=== PATIENT | male | born 1960 ===

== ENCOUNTER 2017-03-15 16:21 | Observation (INO) | payer OTHER ==
[2017-03-15] MEDS ORDERED: solu-MEDROL 125 MG IV ONE (16:24)
[2017-03-15] MEDS ORDERED: DUONEB 0.5-3 MG/3 ml Neb IH ONE ×2 (16:24→16:28)
[2017-03-15] MEDS ORDERED: Lactated Ringers 1,000 ML IV ONE ×2 (16:25→16:30)
[2017-03-15] MEDS ORDERED: solu-MEDROL 125 MG ONE (16:29)
[2017-03-15 16:38] LABS: BASOPHIL % 0.4 % (0.0-0.4); Basophil (Absolute #) 0.02 (0-0.4); Eosinophil % 0.5 % (0.00-5.0); Eosinophil (Absolute #) 0.03 (0-0.5); Granulocyte Absolute (ANC) 3.97 (1.4-6.9); Granulocytes % 71.4 % (36.0-66.0); Hematocrit 44.6 % (42-50); Hemoglobin 14.4 gm/dl (12.5-18.0); Mean Cell Volume 89.2 fl (78-100); Mean Corpuscular Hemoglobin 28.8 pg (26-32); Mean Corpuscular Hgb Concent. 32.3 g/dl (32-36); Mean Platelet Volume 10.1 fl (6-9.5); Monocyte (Absolute #) 0.54 (0.0-1.3); Monocytes % 9.7 % (0.0-12.0); Platelet Count 207 K/mm3 (150-450); Red Cell Distribution Width 12.5 % (11.5-14.0); White Blood Count 5.6 K/mm3 (4.0-10.5)
[2017-03-15 16:45] LABS: VBG BASE EXCESS 2.4 (-2.0-2.0); VBG CARBOXYHEMOGLOBIN 2.6 % T HGB (0.0-6.9); VBG HCO3- 26.4 meq/L (22-28); VBG HEMOGLOBIN 15.1; VBG POTASSIUM 3.6 (3.5-5.1); VBG pH 7.45 (7.32-7.42)
--- NOTE | 2017-03-15 17:00 | XRAY ---
Indication: Cough. Asthma. Comparison: None Portable chest clear. Heart is not enlarged. Vascularity normal. Bony thorax intact with mild degenerative changes. Impression: Nonacute chest.
[2017-03-15] MEDS ORDERED: PROVENTIL 2.5 MG/3 ML NEB IH ONE ×4 (17:04→17:57)
--- NOTE | 2017-03-15 17:04 | ERPHSYRPT ---
- History of Present Illness Time Seen by Provider: 03/15/17 16:24 Source: patient, family Patient Subjective Stated Complaint: COUGH, SOB, FEVER FOR ONE WEEK. ALSO BODY ACHES AND HEADACHE Triage Nursing Assessment: TO ROOM PER W/C. SKIN W/D, COLOR NORMAL, RESP SLIGHTLY LABORED. AUDIBLE WHEEZES HEARD. Physician History: CC: asthma Hx: 56 y/o patient of [place] with hx of asthma. He has 4-5 day hx of wheezing, trouble breathing, URI symptoms, myalgias, headache, sore throats. Timing/Duration: worse Severity of Dyspnea-Max: moderate Severity of Dyspnea-Current: moderate Possible Cause: occasional episodes, allergen exposure Allergies/Adverse Reactions: No Known Drug Allergies Allergy (Unverified 03/15/17 16:42) Home Medications: Albuterol Sulfate [Proair Hfa] 8.5 gm IH UD 03/15/17 [History] Budesonide/Formoterol Fumarate [Symbicort 80-4.5 Mcg Inhaler] 6.9 gm IH BID 10/23 [History] Etodolac [Lodine] 300 mg PO DAILY 03/15/17 [History] Omeprazole 20 MG [Prilosec 20 mg] 20 mg PO DAILY 03/15/17 [History] Venlafaxine HCl ER 37.5 mg [Effexor ER 37.5 MG] 37.5 mg PO DAILY 03/15/17 [History] Hx Tetanus, Diphtheria Vaccination/Date Given: No Hx Influenza Vaccination/Date Given: No Hx Pneumococcal Vaccination/Date Given: No - Review of Systems Constitutional: Fatigue, Malaise, No Fever, No Chills Eyes: No Symptoms Ears, Nose, & Throat: No Symptoms Respiratory: Cough, Dyspnea, Wheezing Cardiac: No Chest Pain Abdominal/Gastrointestinal: Vomiting, Diarrhea, No Abdominal Pain, No Nausea Genitourinary Symptoms: No Dysuria Skin: No Rash Neurological: Headache All Other Systems: Reviewed and Negative - Past Medical History Pertinent Past Medical History: Yes Respiratory History: Asthma Musculoskeletal History: Degenerative Disk Disease GI Medical History: Hemorrhoids, Polyps Psycho-Social History: Anxiety, Depression Other Medical History: PTSD, - Past Surgical History Past Surgical History: Yes Gastrointestinal: Hemorrhoidectomy Other Surgical History: POLYPS REMOVED - Social History Smoking Status: Former smoker Exposure to second hand smoke: No Drug Use: none Patient Lives Alone: No - Nursing Vital Signs Nursing Vital Signs: Initial Vital Signs Temperature 98.9 F 03/15/17 16:24 Pulse Rate 89 03/15/17 16:24 Respiratory Rate 20 03/15/17 16:24 Blood Pressure 118/68 03/15/17 16:24 O2 Sat by Pulse Oximetry 91 L 03/15/17 16:24 Pain Scale Pain Intensity 0 - Physical Exam General Appearance: alert, other (breathless on arrival) Eye Exam: PERRL/EOMI Neck Exam: normal inspection, non-tender, supple Respiratory Exam: respiratory distress (mild), wheezing Cardiovascular/Chest Exam: normal heart sounds, regular rate/rhythm, No murmur Abdominal/Gastrointestinal Exam: soft, No tenderness, No distention, No mass Extremity Exam: non-tender, no calf tenderness Neurologic Exam: alert, oriented x 3, cooperative, sensation nml, No motor deficits Skin Exam: warm, dry, No rash SpO2 Interpretation: hypoxic, O2 applied SpO2: 91 Oxygen Delivery: Room Air - Course Nursing assessment & vital signs reviewed: Yes EKG Interpreted by Me: RATE (86), Sinus Rhythm, NORMAL AXIS, NORMAL INTERVALS ( QTc 414), NORMAL QRS, NORMAL ST-T, Other (Poor R wave progression) - Radiology Exams cxr X-ray Interpretation: Teleradiologist Report, Negative Ordered Tests: Active Orders 24 hr Category Date Time Status Supervising Appraiser STAT Care 03/15/17 16:25 Active EKG-ER Only STAT Care 03/15/17 16:24 Active IV Insertion STAT Care 03/15/17 16:24 Active Oxygen-ED Only NASAL CANNULA 2 lpm Care 03/15/17 17:04 Active Pulse Oximetry (ED) STAT Care 03/15/17 16:24 Active CHEST 1 VIEW (PORTABLE) Stat Exams 03/15/17 16:25 Completed CBC W DIFF Stat Lab 03/15/17 16:30 Completed CMP Stat Lab 03/15/17 16:30 Completed Lactic Acid Stat Lab 03/15/17 16:40 Completed MAGNESIUM Stat Lab 03/15/17 16:30 Completed UA W/RFX UR CULTURE Stat Lab 03/15/17 16:25 Ordered VENOUS BLOOD GAS Stat Lab 03/15/17 16:40 Completed Respiratory Nebulizer STAT RT 03/15/17 16:25 Completed Respiratory Nebulizer STAT RT 03/15/17 17:05 Completed Respiratory Nebulizer STAT RT 03/15/17 17:44 Completed Medication Summary Generic Name Dose Route Start Last Admin Trade Name Jackson PRN Reason Stop Dose Admin Magnesium Sulfate/Dextrose 100 mls @ 100 mls/hr 03/15/17 17:15 03/15/17 17:27 Magnesium 1 Gm / 100 Ml D5w IV 03/15/17 19:14 100 mls/hr Q1H CLAY Administration Discontinued Medications Generic Name Dose Route Start Last Admin Trade Name Jackson PRN Reason Stop Dose Admin Albuterol Sulfate 2.5 mg 03/15/17 17:04 03/15/17 17:08 Proventil 2.5 Mg/3 Ml Neb IH 03/15/17 17:05 2.5 mg STAT ONE Administration Albuterol Sulfate Confirm 03/15/17 17:05 Proventil 2.5 Mg/3 Ml Neb Administered 03/15/17 17:06 Dose 2.5 mg IH .STK-MED ONE Albuterol Sulfate 2.5 mg 03/15/17 17:44 03/15/17 18:02 Proventil 2.5 Mg/3 Ml Neb IH 03/15/17 17:45 2.5 mg STAT ONE Administration Albuterol Sulfate Confirm 03/15/17 17:57 Proventil 2.5 Mg/3 Ml Neb Administered 03/15/17 17:58 Dose 2.5 mg IH .STK-MED ONE Albuterol/Ipratropium 3 ml 03/15/17 16:24 03/15/17 16:31 Duoneb 0.5-3 Mg/3 Ml Neb IH 03/15/17 16:25 3 ml STAT ONE Administration Albuterol/Ipratropium Confirm 03/15/17 16:28 Duoneb 0.5-3 Mg/3 Ml Neb Administered 03/15/17 16:29 Dose 3 ml IH .STK-MED ONE Lactated Ringer's 1,000 mls @ 999 mls/hr 03/15/17 16:25 03/15/17 16:33 Lactated Ringers IV 03/15/17 17:25 999 mls/hr .Q1H1M ONE Administration Lactated Ringer's Confirm 03/15/17 16:30 Lactated Ringers Administered 03/15/17 16:31 Dose 1,000 mls @ ud IV .STK-MED ONE Magnesium Sulfate/Dextrose Confirm 03/15/17 17:24 Magnesium 1 Gm / 100 Ml D5w Administered 03/15/17 17:25 Dose 100 mls @ ud IV .STK-MED ONE Methylprednisolone Sodium Succinate 125 mg 03/15/17 16:24 03/15/17 16:34 Solu-Medrol 125 Mg IV 03/15/17 16:25 125 mg STAT ONE Administration Methylprednisolone Sodium Succinate Confirm 03/15/17 16:29 Solu-Medrol 125 Mg Administered 03/15/17 16:30 Dose 125 mg .ROUTE .STK-MED ONE Oseltamivir Phosphate 75 mg 03/15/17 18:07 03/15/17 18:15 Tamiflu 75mg Capsule PO 03/15/17 18:08 75 mg STAT ONE Administration Oseltamivir Phosphate Confirm 03/15/17 18:14 Tamiflu 75mg Capsule Administered 03/15/17 18:15 Dose 75 mg PO .STK-MED ONE Lab/Rad Data: Laboratory Result Diagrams 03/15/17 16:30 03/15/17 16:30 Laboratory Results 03/15/17 03/15/17 03/15/17 Range/Units 16:40 16:40 16:30 WBC (4.0-10.5) K/mm3 RBC (4.1-5.6) M/mm3 Hgb (12.5-18.0) gm/dl Hct (42-50) % MCV (78-100) fl MCH (26-32) pg MCHC (32-36) g/dl RDW (11.5-14.0) % Plt Count (150-450) K/mm3 MPV (6-9.5) fl Gran % (36.0-66.0) % Lymphocytes % (24.0-44.0) % Monocytes % (0.0-12.0) % Eosinophils % (0.00-5.0) % Basophils % (0.0-0.4) % Basophils # (0-0.4) VBG pH 7.45 H (7.32-7.42) VBG pCO2 at Pat Temp 38 L (42-55) mm/Hg VBG pO2 at Pat Temp 44 H (25-40) mm/Hg VBG HCO3 26.4 (22-28) meq/L VBG O2 Sat (Hunter) 86.0 L (95-100) VBG Base Excess 2.4 H (-2.0-2.0) VBG Hemoglobin 15.1 VBG Carboxyhemoglobin 2.6 (0.0-6.9) % T HGB POC Potassium 3.6 (3.5-5.1) Sodium (136-145) mEq/L Potassium (3.5-5.1) mEq/L Chloride (98-107) mEq/L Carbon Dioxide (21-32) mEq/L Anion Gap (5-15) MEQ/L BUN (9-20) mg/dL Creatinine (0.55-1.30) mg/dl Estimated GFR ML/MIN Glucose (70-110) MG/DL Lactic Acid 1.7 (0.4-2.0) Calcium (8.5-10.1) mg/dL Magnesium (1.8-2.4) mg/dL Total Bilirubin (0.2-1.0) mg/dL AST (15-37) U/L ALT (12-78) U/L Alkaline Phosphatase (46-116) U/L Serum Total Protein (6.4-8.2) gm/dL Albumin (3.4-5.0) g/dL Influenza Type A Ag NEGATIVE (NEGATIVE) Influenza Type B Ag POSITIVE (NEGATIVE) RSV (PCR) NEGATIVE (Negative) 03/15/17 03/15/17 Range/Units 16:30 16:30 WBC 5.6 (4.0-10.5) K/mm3 RBC 5.00 (4.1-5.6) M/mm3 Hgb 14.4 (12.5-18.0) gm/dl Hct 44.6 (42-50) % MCV 89.2 (78-100) fl MCH 28.8 (26-32) pg MCHC 32.3 (32-36) g/dl RDW 12.5 (11.5-14.0) % Plt Count 207 (150-450) K/mm3 MPV 10.1 H (6-9.5) fl Gran % 71.4 H (36.0-66.0) % Lymphocytes % 18.0 L (24.0-44.0) % Monocytes % 9.7 (0.0-12.0) % Eosinophils % 0.5 (0.00-5.0) % Basophils % 0.4 (0.0-0.4) % Basophils # 0.02 (0-0.4) VBG pH (7.32-7.42) VBG pCO2 at Pat Temp (42-55) mm/Hg VBG pO2 at Pat Temp (25-40) mm/Hg VBG HCO3 (22-28) meq/L VBG O2 Sat (Hunter) (95-100) VBG Base Excess (-2.0-2.0) VBG Hemoglobin VBG Carboxyhemoglobin (0.0-6.9) % T HGB POC Potassium (3.5-5.1) Sodium 137 (136-145) mEq/L Potassium 3.5 (3.5-5.1) mEq/L Chloride 101 (98-107) mEq/L Carbon Dioxide 24.9 (21-32) mEq/L Anion Gap 14.4 (5-15) MEQ/L BUN 15 (9-20) mg/dL Creatinine 1.22 (0.55-1.30) mg/dl Estimated GFR > 60 ML/MIN Glucose 121 H (70-110) MG/DL Lactic Acid (0.4-2.0) Calcium 9.2 (8.5-10.1) mg/dL Magnesium 2.1 (1.8-2.4) mg/dL Total Bilirubin 0.60 (0.2-1.0) mg/dL AST 47 H (15-37) U/L ALT 34 (12-78) U/L Alkaline Phosphatase 110 (46-116) U/L Serum Total Protein 7.5 (6.4-8.2) gm/dL Albumin 3.5 (3.4-5.0) g/dL Influenza Type A Ag (NEGATIVE) Influenza Type B Ag (NEGATIVE) RSV (PCR) (Negative) - Progress Progress Note: 03/15/17 18:31 He has wheezing but improved with 3 nebs, steroids, mag. RA saturation is 89-91% . He is improved but still hypoxic. Flu B positive. Tamiflu given. Called [facility] who advised no beds there and admit here. Spoke to Dr Elroy Mora and will place in obs for o2, RT, and tamiflu. Pt and family aware and agree. Discussed with : Laura Will see patient in: hospital (observation) Counseled pt/family regarding: lab results, diagnosis, need for follow-up, rad results - Departure Time of Disposition: 18:32 Departure Disposition: Observation (Dr Elroy Mora (oc)) Clinical Impression: Status asthmaticus, Influenza B, Hypoxemia Condition: Fair Critical Care Time: Yes Critical Care Time(excluding separately billable procedures): 30-74 minutes Referrals: PATRIA SCHULZ MD [Primary Care Provider] -
[2017-03-15] MEDS ORDERED: Magnesium 1 Gm / 100 Ml D5W*** 100 ML IV ONE ×2 (17:24→18:30)
[2017-03-15] MEDS: Magnesium 1 Gm / 100 Ml D5W*** 100 ML IV SCH ×2 (17:27→18:31)
[2017-03-15 17:32] LABS: ALBUMIN 3.5 g/dL (3.4-5.0); ALKALINE PHOSPHATASE 110 U/L (46-116); ANION GAP 14.4 MEQ/L (5-15); BLOOD UREA NITROGEN 15 mg/dL (9-20); CHLORIDE 101 mEq/L (98-107); Calcium 9.2 mg/dL (8.5-10.1); Carbon Dioxide 24.9 mEq/L (21-32); Creatinine 1 1.22 mg/dl (0.55-1.30); EST GLOMERULAR FILTRATION RATE > 60 ML/MIN; Glucose 121 MG/DL (70-110); MAGNESIUM 2.1 mg/dL (1.8-2.4); Potassium 3.5 mEq/L (3.5-5.1); SGOT/AST 47 U/L (15-37); SGPT/ALT 34 U/L (12-78); SODIUM 137 mEq/L (136-145); Total Protein 7.5 gm/dL (6.4-8.2)
[2017-03-15 17:51] LABS: INFLUENZA A NEGATIVE (NEGATIVE); RESPIRATORY SYNCTIAL VIRUS NEGATIVE (Negative)
[2017-03-15 17:52] LABS: INFLUENZA B POSITIVE (NEGATIVE)
[2017-03-15] MEDS ORDERED: Tamiflu 75MG Capsule PO ONE ×2 (18:07→18:14)
[2017-03-15 18:34] LABS: Appearance CLEAR (CLEAR); Bilirubin NEGATIVE (NEGATIVE); Blood TRACE NON-HEM Ery/ul (0-5); Glucose NEGATIVE (NEGATIVE); Ketones NEGATIVE (NEGATIVE); Leukocyte Esterase NEGATIVE (NEGATIVE); Nitrite NEGATIVE (NEGATIVE); Protein,Urine Dip NEGATIVE (Negative); Specific Gravity 1.005 (1.005-1.025); Urobilinogen NORMAL mg/dL (0-1)
[2017-03-15 18:35] LABS: Bacteria RARE /HPF (NEGATIVE)
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
[2017-03-15] MEDS ORDERED: D5w/0.45NS W/ 40MEQ KCl 1000 Ml 1,000 ML IV SCH (21:10)
[2017-03-15] MEDS ORDERED: TYLENOL 325 MG PO PRN (21:10)
[2017-03-15] MEDS ORDERED: PROVENTIL 2.5 MG/3 ML NEB IH PRN (21:10)
[2017-03-15] MEDS: DUONEB 0.5-3 MG/3 ml Neb IH SCH (21:51)
[2017-03-15] MEDS: Tamiflu 75MG Capsule PO SCH (22:55)
[2017-03-15] MEDS: Pepcid 20 MG VIAL IV SCH (22:55)
[2017-03-15] MEDS: solu-MEDROL 125 MG IV SCH (22:56)
[2017-03-16] MEDS: DUONEB 0.5-3 MG/3 ml Neb IH SCH ×8 (03:57→23:53)
[2017-03-16] MEDS: solu-MEDROL 125 MG IV SCH (04:04)
[2017-03-16] MEDS: PATIENT OWN MEDICATION IH SCH ×2 (06:50→19:34)
[2017-03-16 08:24] LABS: ANION GAP 15.6 MEQ/L (5-15); BLOOD UREA NITROGEN 10 mg/dL (9-20); CHLORIDE 100 mEq/L (98-107); Calcium 9.2 mg/dL (8.5-10.1); Creatinine 1 1.09 mg/dl (0.55-1.30); EST GLOMERULAR FILTRATION RATE > 60 ML/MIN; Glucose 203 MG/DL (70-110); Potassium 5.1 mEq/L (3.5-5.1); SODIUM 137 mEq/L (136-145)
[2017-03-16] MEDS: Pepcid 20 MG VIAL IV SCH ×2 (08:37→21:31)
[2017-03-16] MEDS: DELTASONE 20 MG PO SCH (08:37)
[2017-03-16] MEDS: Tamiflu 75MG Capsule PO SCH ×2 (08:37→21:31)
[2017-03-16] MEDS ORDERED: NON-FORMULARY ITEM (Omeprazole 20 Mg [Prilosec 20 Mg] 20 MG) PO SCH (10:00)
[2017-03-16] MEDS: Protonix 40MG Tablet PO SCH (10:26)
[2017-03-16] MEDS: Effexor ER 37.5 MG PO SCH (10:26)
[2017-03-16] MEDS ORDERED: solu-MEDROL 125 MG IV SCH (12:00)
--- NOTE | 2017-03-16 13:28 | PCM.NOTE ---
Date and Time: 03/16/17 1326 Subjective Assessment: feeling a little better today he couldn't sleep last night due to the steroids. O2 was increased a little to 3L. Overall feels much better but shaky from steroids hungry and tired. Still with sob on exertion. Objective Exam General Appearance: no apparent distress, alert Neurologic Exam: alert, oriented x 3, cooperative, normal mood/affect, nml cerebellar function, sensation nml, No motor deficits Skin Exam: normal color, warm, dry Eye Exam: PERRL, EOMI, eyes nml inspection Ears, Nose, Throat Exam: normal ENT inspection, pharynx normal, moist mucous membranes Neck Exam: normal inspection, non-tender, supple, full range of motion Respiratory Exam: prolonged expirations, wheezing Cardiovascular Exam: regular rate/rhythm, normal heart sounds Gastrointestinal/Abdomen Exam: soft, No tenderness, No mass Extremity Exam: normal inspection, normal range of motion Back Exam: normal inspection, normal range of motion, No CVA tenderness, No vertebral tenderness Male Genitalia Exam: deferred Rectal Exam: deferred OBJECTIVE DATA Vital Signs: Vital Signs - 24 hr Temp Pulse Resp BP Pulse Ox 03/16/17 10:57 97.4 F 76 18 136/69 91 L 03/16/17 07:29 98.4 F 74 18 123/61 92 L 03/16/17 07:06 73 20 95 03/16/17 04:00 98.1 F 71 20 135/80 96 03/16/17 03:59 73 18 96 03/16/17 00:00 99.0 F 74 19 135/80 94 L 03/15/17 22:59 99.2 F 89 19 146/80 93 L 03/15/17 21:51 89 19 90 L 03/15/17 18:34 91 L 03/15/17 18:20 98.4 F 82 12 131/61 93 L 03/15/17 18:04 81 22 90 L 03/15/17 17:19 82 22 131/61 99 03/15/17 17:11 82 20 93 L 03/15/17 16:53 91 L 03/15/17 16:37 88 24 91 L 03/15/17 16:24 98.9 F 89 20 118/68 91 L Oxygen-Last 24 hours O2 Percentage 3 Liters = 32% O2 Percentage 3 Liters = 32% O2 Percentage 3 Liters = 32% O2 Percentage 2 Liters = 28% Pain Assessment - Last Documented Pain Intensity 0 Pain Scale Used 0-10 Pain Scale Intake and Output: Intake & Output 03/14/17 03/15/17 03/16/17 03/17/17 11:59 11:59 11:59 11:59 Intake Total 60 Balance 60 Weight 183.3 kg Lab Results: Lab Results-Last 24 Hours 03/16/17 Range/Units 05:30 Sodium 137 (136-145) mEq/L Potassium 5.1 (3.5-5.1) mEq/L Chloride 100 (98-107) mEq/L Carbon Dioxide 26.0 (21-32) mEq/L Anion Gap 15.6 H (5-15) MEQ/L BUN 10 (9-20) mg/dL Creatinine 1.09 (0.55-1.30) mg/dl Estimated GFR > 60 ML/MIN Glucose 203 H (70-110) MG/DL Calcium 9.2 (8.5-10.1) mg/dL Assessment/Plan (1) Asthma with acute exacerbation Current Visit: Yes Status: Acute Assessment & Plan: improving will wean the steroids work on weaning the oxygen as tolerated continue the tamiflu Home when able to wean O2 and stable on scheduled nebs hopefully tomorrow am will be doing well with the significant improvement thus far. (2) Hypoxemia Current Visit: Yes Status: Acute Code(s): R09.02 - HYPOXEMIA (3) Influenza B Current Visit: Yes Status: Acute Code(s): J10.1 - FLU DUE TO OTH IDENT INFLUENZA VIRUS W OTH RESP MANIFEST
[2017-03-17] MEDS: DUONEB 0.5-3 MG/3 ml Neb IH SCH ×4 (03:55→14:35)
[2017-03-17] MEDS: PATIENT OWN MEDICATION IH SCH (07:00)
[2017-03-17] MEDS: Effexor ER 37.5 MG PO SCH (11:06)
[2017-03-17] MEDS: DELTASONE 20 MG PO SCH (11:06)
[2017-03-17] MEDS: Pepcid 20 MG VIAL IV SCH (11:07)
[2017-03-17] MEDS: Protonix 40MG Tablet PO SCH (11:07)
[2017-03-17] MEDS: Tamiflu 75MG Capsule PO SCH (11:07)
[2017-03-17 13:09] VITALS: O2SAT 92
--- NOTE | 2017-03-17 15:21 | PCM.DCORD ---
- Discharge Discharge Date: 03/17/17 Disposition: Home, Self-Care Condition: Good Prescriptions: New Prednisone 20 mg [Deltasone 20 mg] 40 mg PO DAILY #10 tablet Oseltamivir 75 mg [Tamiflu 75MG Capsule] 75 mg PO BID #8 cap Continue Venlafaxine HCl ER 37.5 mg [Effexor ER 37.5 MG] 37.5 mg PO DAILY Omeprazole 20 MG [Prilosec 20 mg] 20 mg PO DAILY Etodolac [Lodine] 300 mg PO DAILY Budesonide/Formoterol Fumarate [Symbicort 80-4.5 Mcg Inhaler] 6.9 gm IH BID Albuterol Sulfate [Proair Hfa] 8.5 gm IH UD Follow up with: PATRIA SCHULZ MD [Primary Care Provider] -
[2017-03-17 16:46] VITALS: BP 138/76; PULSE 78
--- NOTE | 2017-03-17 19:13 | PCM.DS ---
Discharge Summary Date of Admission: 03/15/17 21:02 Date of Discharge: 03/17/17 Admitting Physician: YOUSIF DENTON Primary Care Provider: PATRIA SCHULZ MD Allergies Allergies No Known Drug Allergies Allergy (Unverified 03/15/17 16:42) Hospital Summary - Hospital Course Hospital Course: he presented with 1 week of worsening shortness of breath chills weakness fever. He was found to have influenza B and acute respiratory failure with acute asthma exacerbation in the ED. He is a patient of the [facility] and they were contacted and no beds were available there so he was admitted here given Oxygen iv solumedrol and tamiflu as well as nebs. The solumedrol was changed to prednisone on day 1. He improved well and initially had some difficulty weaning the O2 on the first day and became very weak and hypoxic in the shower and then on day 2 he was able to wean the O2 to room air and was feeling much better. He was discharged to home with prednisone and to complete tamiflu and continue his inhalers as ordered. - Vitals & Intake/Output Vital Signs: Vital Signs Temperature 97.8 F 03/17/17 16:00 Pulse Rate 78 03/17/17 16:00 Respiratory Rate 20 03/17/17 16:00 Blood Pressure 138/76 03/17/17 16:00 O2 Sat by Pulse Oximetry 92 L 03/17/17 16:00 Oxygen-Last Documented O2 Percentage 2 Liters = 28% Intake & Output: Intake & Output 03/15/17 03/16/17 03/17/17 03/18/17 11:59 11:59 11:59 11:59 Intake Total 60 1700 900 Output Total 1000 Balance 60 700 900 Weight 183.3 kg - Lab Result Diagrams: 03/15/17 16:30 03/16/17 05:30 - Procedures and Test Procedures and Tests throughout Hospitalization: Therapy Orders & Screens 03/15/17 21:28 Respiratory Nebulizer PRN Comment: ALBUTEROL Q2PRN FOR SOB/WHEEZING Diagnosis: Shortness of Breath 03/15/17 23:00 Respiratory Nebulizer Q4H Comment: DUONEB Q4 HOURS Diagnosis: Shortness of Breath 03/16/17 07:00 Respiratory MDI BID Comment: SYMBICORT 80/4.5 2 PUFFS BID PT'S HOME MEDICATION Diagnosis: Status Asthmaticus, Hypoxemia, Influenza B 03/17/17 10:52 Oxygen NASAL CANNULA 2 lpm Comment: WEAN PATIENT NECESSARY. Diagnosis: Status Asthmaticus, Hypoxemia, Influenza B Discharge Exam General Appearance: no apparent distress, alert Neurologic Exam: alert, oriented x 3, cooperative, normal mood/affect, nml cerebellar function, sensation nml, No motor deficits Skin Exam: normal color, warm, dry Eye Exam: PERRL, EOMI, eyes nml inspection Ears, Nose, Throat Exam: normal ENT inspection, pharynx normal, moist mucous membranes Neck Exam: normal inspection, non-tender, supple, full range of motion Respiratory Exam: normal breath sounds, lungs clear, No respiratory distress Cardiovascular Exam: regular rate/rhythm, normal heart sounds Gastrointestinal/Abdomen Exam: soft, No tenderness, No mass Extremity Exam: normal inspection, normal range of motion Back Exam: normal inspection, normal range of motion, No CVA tenderness, No vertebral tenderness Male Genitalia Exam: deferred Rectal Exam: deferred Final Diagnosis/Problem List - Final Discharge Diagnosis/Problem (1) Asthma with acute exacerbation Status: Acute (2) Hypoxemia Status: Acute (3) Influenza B Status: Acute - Discharge Discharge Date: 03/17/17 Disposition: Home, Self-Care Condition: Good Prescriptions: New Prednisone 20 mg [Deltasone 20 mg] 40 mg PO DAILY #10 tablet Oseltamivir 75 mg [Tamiflu 75MG Capsule] 75 mg PO BID #8 cap Continue Venlafaxine HCl ER 37.5 mg [Effexor ER 37.5 MG] 37.5 mg PO DAILY Omeprazole 20 MG [Prilosec 20 mg] 20 mg PO DAILY Etodolac [Lodine] 300 mg PO DAILY Budesonide/Formoterol Fumarate [Symbicort 80-4.5 Mcg Inhaler] 6.9 gm IH BID Albuterol Sulfate [Proair Hfa] 8.5 gm IH UD Instructions: Flu, Adult (DC) Follow up with: PATRIA SCHULZ MD [Primary Care Provider] - Call for Appointment Forms: Patient Portal Information
== END 2017-03-17 18:10 | disposition home or self-care (01) ==
LOC: ED 16:21 → MED SURG 21:02
PROVIDERS: ADMIT Family Medicine; ATTEND Family Medicine
DX: J45.901 Unspecified asthma with (acute) exacerbation (principal); R09.02 Hypoxemia; J10.1 Influenza due to other identified influenza virus with other respiratory manifestations; F41.8 Other specified anxiety disorders; F43.10 Post-traumatic stress disorder, unspecified; Z87.891 Personal history of nicotine dependence; Z79.899 Other long term (current) drug therapy
CPT/HCPCS: 36000; 36415; 71045; 80048; 80053; 81000; 82805; 83605; 83735; 85025; 87631; 93005; 93041; 94640; 94760; 96360; 96365; 96374; 99285; G0378; J2930; J3475; A9270-GY

== ENCOUNTER 2018-08-28 19:43 | Emergency (ER) | payer OTHER ==
[2018-08-28] MEDS ORDERED: PROVENTIL 2.5 MG/3 ML NEB IH ONE ×2 (19:58→20:12)
[2018-08-28] MEDS ORDERED: solu-MEDROL 125 MG IV ONE (19:59)
--- NOTE | 2018-08-28 20:00 | ERPHSYRPT ---
- History of Present Illness Time Seen by Provider: 08/28/18 20:00 Source: patient, family Exam Limitations: no limitations Patient Subjective Stated Complaint: PT IS ALERT AND ORIENTED. PT IS AMBULATORY WITH A STEADY GAIT. PT COMES IN WITH C/O SOB WORSENING THROUGHOUT THE DAY, DIZZINESS, LIGHTHEADEDNESS. PT STATES THIS MORNING HE HAS SOME CHEST PAIN WITH INSPIRATION. PT IS 93% ON RA, PLACED PT ON 2L NC AND IS NOW 97%. PT HAS EXPIRATORY WHEEZES IN HIS UPPER RIGHT LOBE A&P. PT SKIN IS NORMAL TO RACE, DRY, AND WARM. PT DENIES ANY CURRENT CHEST PAIN. PT STATES THAT HE HAS SOME GENERALIZED JOINT PAIN ALL OVER HIS BODY THAT HE RATES A 9/10. NO EDEMA NOTED. Triage Nursing Assessment: SEE ABOVE Physician History: 57 y/o male with h/o asthma presents to ED with soa, wheezing and dizziness. pt denies cp, denies abd pain. Timing/Duration: today Activities at Onset: none Severity of Dyspnea-Max: moderate Severity of Dyspnea-Current: mild Possible Cause: occasional episodes Associated Symptoms: anxiety, cough, lightheadedness, wheezing Allergies/Adverse Reactions: No Known Drug Allergies Allergy (Unverified 03/15/17 16:42) Home Medications: Albuterol Sulfate [Proair Hfa] 8.5 gm NEB UD PRN 03/15/17 [History] Budesonide/Formoterol Fumarate [Symbicort 80-4.5 Mcg Inhaler] 6.9 gm IH BID PRN 03/15/17 [History] Etodolac [Lodine] 300 mg PO DAILY 03/15/17 [History] Omeprazole 20 MG [Prilosec 20 mg] 20 mg PO DAILY 03/15/17 [History] Venlafaxine HCl ER 37.5 mg [Effexor ER 37.5 MG] 75 mg PO DAILY 03/15/17 [ History] Cholecalciferol (Vitamin D3) [Vitamin D3] 1,000 unit PO DAILY 08/28/18 [History] Ipratropium/Albuterol Sulfate [Combivent Inhaler] 14.7 gm IH Q4H PRN PRN [History] Loratadine 10 mg [Claritin 10 mg] 10 mg PO DAILY 08/28/18 [History] Hx Tetanus, Diphtheria Vaccination/Date Given: No Hx Influenza Vaccination/Date Given: No Hx Pneumococcal Vaccination/Date Given: No Immunizations Up to Date: Yes - Review of Systems Constitutional: No Symptoms Eyes: No Symptoms Ears, Nose, & Throat: No Symptoms Respiratory: Dyspnea (mild), Wheezing Cardiac: No Symptoms, No Chest Pain, No Palpitations Abdominal/Gastrointestinal: No Symptoms, No Abdominal Pain, No Nausea, No Vomiting Genitourinary Symptoms: No Symptoms Musculoskeletal: No Symptoms Skin: No Symptoms Neurological: No Symptoms Psychological: No Symptoms Endocrine: No Symptoms Hematologic/Lymphatic: No Symptoms Immunological/Allergic: No Symptoms All Other Systems: Reviewed and Negative - Past Medical History Pertinent Past Medical History: Yes Neurological History: No Pertinent History ENT History: No Pertinent History Cardiac History: No Pertinent History Respiratory History: Asthma Endocrine Medical History: No Pertinent History Musculoskeletal History: Degenerative Disk Disease GI Medical History: Hemorrhoids, Polyps History: No Pertinent History Psycho-Social History: Anxiety, Depression, Other Male Reproductive Disorders: No Pertinent History Other Medical History: PTSD, - Past Surgical History Past Surgical History: Yes Neuro Surgical History: No Pertinent History Cardiac: No Pertinent History Respiratory: No Pertinent History Gastrointestinal: Hemorrhoidectomy, Other Genitourinary: No Pertinent History Musculoskeletal: No Pertinent History Male Surgical History: No Pertinent History Other Surgical History: POLYPS REMOVED - Social History Smoking Status: Current every day smoker How long have you smoked: 40 YEARS Exposure to second hand smoke: No Drug Use: none Patient Lives Alone: No - Nursing Vital Signs Nursing Vital Signs: Initial Vital Signs Pulse Rate 83 08/28/18 19:47 Respiratory Rate 22 08/28/18 19:47 Blood Pressure 158/105 08/28/18 19:47 O2 Sat by Pulse Oximetry 93 L 08/28/18 19:47 Pain Scale Pain Intensity 0 - Physical Exam General Appearance: mild distress, alert, anxiety Eye Exam: PERRL/EOMI, eyes nml inspection Ears, Nose, Throat Exam: hearing grossly normal Neck Exam: normal inspection, non-tender, supple, full range of motion Respiratory Exam: airway intact, wheezing (mild bilat right > left), No chest tenderness, No respiratory distress Cardiovascular/Chest Exam: normal heart sounds, regular rate/rhythm, murmur Abdominal/Gastrointestinal Exam: soft, normal bowel sounds, No tenderness Rectal Exam: not done Extremity Exam: non-tender Neurologic Exam: alert, oriented x 3, cooperative, sericulturist II-XII nml as tested, normal mood/affect Skin Exam: normal color, warm, dry Lymphatic Exam: No adenopathy SpO2 Interpretation: borderline oxygenation SpO2: 95 O2 Delivery: Room Air - Course Nursing assessment & vital signs reviewed: Yes EKG Interpreted by Me: RATE (84), Sinus Rhythm, NORMAL AXIS, NORMAL INTERVALS, NORMAL QRS, Other (no change from comparison ekg dated 03/15/17) Ordered Tests: Active Orders 24 hr Category Date Time Status Emergency Service Restorer STAT Care 08/28/18 20:09 Active EKG-ER Only STAT Care 08/28/18 20:08 Active IV Insertion STAT Care 08/28/18 20:08 Active Oxygen-ED Only Nasal Cannula 2 lpm Care 08/28/18 20:39 Active Pulse Oximetry (ED) STAT Care 08/28/18 20:08 Active CHEST 1 VIEW (PORTABLE) Stat Exams 08/28/18 20:08 Taken CBC W DIFF Stat Lab 08/28/18 20:57 Completed CMP Stat Lab 08/28/18 20:57 Completed D-DIMER QUANTITATION Stat Lab 08/28/18 20:57 Completed Manual Differential [place] Stat Lab 08/28/18 20:57 Completed NT PRO BNP Stat Lab 08/28/18 20:57 Completed TROPONIN Q3H Lab 08/28/18 20:57 Completed TROPONIN Q3H Lab 08/28/18 23:15 Ordered TROPONIN Q3H Lab 08/29/18 02:15 Ordered TROPONIN Q3H Lab 08/29/18 05:15 Ordered TROPONIN Q3H Lab 08/29/18 08:15 Ordered Respiratory Therapy Assessment DAILY RT 08/28/18 20:12 Completed Medication Summary Discontinued Medications Generic Name Dose Route Start Last Admin Trade Name Freq PRN Reason Stop Dose Admin Albuterol Sulfate Confirm 08/28/18 19:58 Proventil 2.5 Mg/3 Ml Neb Administered 08/28/18 19:59 Dose 2.5 mg IH .STK-MED ONE Albuterol Sulfate 2.5 mg 08/28/18 20:12 08/28/18 20:15 Proventil 2.5 Mg/3 Ml Neb IH 08/28/18 20:13 2.5 mg STAT ONE Administration Methylprednisolone Sodium Succinate 125 mg 08/28/18 19:59 08/28/18 20:07 Solu-Medrol 125 Mg IV 08/28/18 20:00 125 mg STAT ONE Administration Methylprednisolone Sodium Succinate Confirm 08/28/18 20:06 Solu-Medrol 125 Mg Administered 08/28/18 20:07 Dose 125 mg .ROUTE .STK-MED ONE Ondansetron HCl 4 mg 08/28/18 20:12 08/28/18 20:15 Zofran 4 Mg/2 Ml Vial IV 08/28/18 20:13 4 mg STAT ONE Administration Ondansetron HCl Confirm 08/28/18 20:13 Zofran 4 Mg/2 Ml Vial Administered 08/28/18 20:14 Dose 4 mg .ROUTE .STK-MED ONE Lab/Rad Data: Laboratory Result Diagrams 08/28/18 20:57 08/28/18 20:57 Laboratory Results 08/28/18 08/28/18 08/28/18 Range/Units 20:57 20:57 20:57 WBC (4.0-10.5) K/mm3 RBC (4.1-5.6) M/mm3 Hgb (12.5-18.0) gm/dl Hct (42-50) % MCV (78-100) fl MCH (26-32) pg MCHC (32-36) g/dl RDW (11.5-14.0) % Plt Count (150-450) K/mm3 MPV (6-9.5) fl D-Dimer 238 (215-500) ng/mL Sodium 140 (137-145) mmol/L Potassium 3.6 (3.5-5.1) mmol/L Chloride 103 (98-107) mmol/L Carbon Dioxide 26 (22-30) mmol/L Anion Gap 15.4 H (5-15) MEQ/L BUN 10 (9-20) mg/dL Creatinine 0.83 (0.66-1.25) mg/dL Estimated GFR > 60.0 ML/MIN Glucose 96 (74-106) mg/dL Calcium 9.9 (8.4-10.2) mg/dL Total Bilirubin 0.70 (0.2-1.3) mg/dL AST 30 (17-59) U/L ALT 25 (0-50) U/L Alkaline Phosphatase 113 (38-126) U/L Troponin I < 0.012 (0.000-0.034) ng/mL NT-Pro-B Natriuret Pep 32.3 (0-900) pg/mL Serum Total Protein 7.9 (6.3-8.2) g/dL Albumin 4.5 (3.5-5.0) g/dL 08/28/18 Range/Units 20:57 WBC 7.2 (4.0-10.5) K/mm3 RBC 4.97 (4.1-5.6) M/mm3 Hgb 15.1 (12.5-18.0) gm/dl Hct 45.8 (42-50) % MCV 92.2 (78-100) fl MCH 30.4 (26-32) pg MCHC 33.0 (32-36) g/dl RDW 12.3 (11.5-14.0) % Plt Count 336 (150-450) K/mm3 MPV 10.3 H (6-9.5) fl D-Dimer (215-500) ng/mL Sodium (137-145) mmol/L Potassium (3.5-5.1) mmol/L Chloride (98-107) mmol/L Carbon Dioxide (22-30) mmol/L Anion Gap (5-15) MEQ/L BUN (9-20) mg/dL Creatinine (0.66-1.25) mg/dL Estimated GFR ML/MIN Glucose (74-106) mg/dL Calcium (8.4-10.2) mg/dL Total Bilirubin (0.2-1.3) mg/dL AST (17-59) U/L ALT (0-50) U/L Alkaline Phosphatase (38-126) U/L Troponin I (0.000-0.034) ng/mL NT-Pro-B Natriuret Pep (0-900) pg/mL Serum Total Protein (6.3-8.2) g/dL Albumin (3.5-5.0) g/dL - Progress Progress: improved Air Movement: good Progress Note: 08/28/18 21:34 cxr no acute process. Blood Culture(s) Obtained: No Antibiotics given: No Counseled pt/family regarding: lab results, diagnosis, need for follow-up, rad results - Departure Departure Disposition: Home Clinical Impression: Shortness of breath, Acute asthma exacerbation Condition: Stable Critical Care Time: No Referrals: PATRIA SCHULZ MD [Primary Care Provider] - Additional Instructions: take medications as prescribed. follow up with primary doctor further management. use inhalers scheduled over next 48 hours. Prescriptions: Ondansetron ODT 4 MG [Zofran Odt 4 mg] 4 mg PO Q6H PRN PRN #10 tab.rapdis PRN Reason: Vomiting Prednisone 10 mg [Deltasone 10 mg] 10 mg PO TID #12 tablet
[2018-08-28] MEDS ORDERED: solu-MEDROL 125 MG ONE (20:06)
[2018-08-28] MEDS ORDERED: Zofran 4 MG/2 ML VIAL IV ONE (20:12)
[2018-08-28] MEDS ORDERED: Zofran 4 MG/2 ML VIAL ONE (20:13)
[2018-08-28 20:39] VITALS: PULSE 82
[2018-08-28 20:48] LABS: Hematocrit 45.8 % (42-50); Hemoglobin 15.1 gm/dl (12.5-18.0); Mean Cell Volume 92.2 fl (78-100); Mean Corpuscular Hemoglobin 30.4 pg (26-32); Mean Platelet Volume 10.3 fl (6-9.5); Platelet Count 336 K/mm3 (150-450); Red Blood Count 4.97 M/mm3 (4.1-5.6); Red Cell Distribution Width 12.3 % (11.5-14.0); White Blood Count 7.2 K/mm3 (4.0-10.5)
[2018-08-28 21:12] LABS: ALBUMIN 4.5 g/dL (3.5-5.0); ALKALINE PHOSPHATASE 113 U/L (38-126); ANION GAP 15.4 MEQ/L (5-15); BLOOD UREA NITROGEN 10 mg/dL (9-20); CHLORIDE 103 mmol/L (98-107); Calcium 9.9 mg/dL (8.4-10.2); Carbon Dioxide 26 mmol/L (22-30); Creatinine 1 0.83 mg/dL (0.66-1.25); Glucose 96 mg/dL (74-106); NT PRO BNP 32.3 pg/mL (0-900); Potassium 3.6 mmol/L (3.5-5.1); SGOT/AST 30 U/L (17-59); SGPT/ALT 25 U/L (0-50); SODIUM 140 mmol/L (137-145); Total Protein 7.9 g/dL (6.3-8.2)
[2018-08-28 21:36] VITALS: BP 166/99
[2018-08-28 21:38] VITALS: O2SAT 95
[2018-08-29 00:44] LABS: ANISOCYTOSIS 1+; Lymphocytes 18 % (24-44); Monocyte 8 % (0.0-12.0); Neutrophils 74 % (36.-66.); Platelet Estimate NORMAL (NORMAL); Poikilocytosis 1+; Total Cells Counted 100
--- NOTE | 2018-08-29 08:33 | XRAY ---
Indication: Short of breath. Comparison: March 15, 2017. Portable chest remains clear. Heart and mediastinal structures within normal limits. Bony thorax intact again with minimal degenerative changes. No new/acute findings.
== END 2018-08-28 21:47 | disposition home or self-care (01) ==
LOC: ED 19:43
DX: R06.02 Shortness of breath (principal); J45.901 Unspecified asthma with (acute) exacerbation; Z79.899 Other long term (current) drug therapy
CPT/HCPCS: 36000; 36415; 71045; 80053; 83880; 84484; 85025; 85379; 93005; 93041; 94640; 96374; 96375; 99284; J2405; J2930; J7609; A9270-GY